=== PATIENT | female | born 1985 | race Caucasian/White ===

== ENCOUNTER → 2022-08-11 | Outpatient (CLI) | payer OTHER ==
--- NOTE | 2022-08-11 09:50 | CT ---
EXAMINATION TYPE: CT wrist LT wo con DATE OF EXAM: 08/11/2022 COMPARISON: None HISTORY: LT wrist pain >[address] year[address] DLP: 131.60 mGycm Automated exposure control for dose reduction was used. FINDINGS: Osseous structures are intact. Joint spaces are preserved. There is no acute fracture or dislocation. No definite soft tissue abnormalities seen. IMPRESSION: NO OSSEOUS ABNORMALITY. THERE IS CONCERN FOR TENDINOUS OR LIGAMENTOUS INJURY THEN MRI WOULD BE RECOMM ENDED.
== END | disposition home or self-care (01) ==
LOC: RADCTMAIN 08:10
PROVIDERS: ATTEND Family Medicine
DX: M25.332 Other instability, left wrist (principal)